=== PATIENT | female | born 1935 | race Caucasian/White ===

== ENCOUNTER 2018-11-21 13:39 | Emergency (ER) | payer MEDICARE, BC ==
--- NOTE | 2018-11-21 14:18 | ED Physician Documentation ---
PD HPI HEAD INJURY - Stated complaint Stated Complaint: HEAD INJ - Chief complaint Chief Complaint: Trauma Hd/Nk - History obtained from History obtained from: Patient - History of Present Illness Mechanism of head injury: Fell (Run into by dog and fell backward hitting occiput on asphalt. +LOC. Happened 2 hours ago. + H/A.) Review of Systems Constitutional: reports: Reviewed and negative Nose: reports: Reviewed and negative Throat: reports: Reviewed and negative Cardiac: reports: Reviewed and negative PD PAST MEDICAL HISTORY - Past Medical History Respiratory: Asthma - Past Surgical History General: Appendectomy - Present Medications Home Medications: Ambulatory Orders Medication Instructions Recorded Confirmed Albuterol Sulfate [Ventolin Hfa] 2 puffs IH Q4HR PRN #1 [id number] 04/11/16 Azithromycin [Zithromax] 250 mg PO DAILY #6 tablet 04/11/16 Meloxicam [Mobic] 7.5 mg PO DAILY 04/11/16 04/11/16 Mometasone Furoate [Asmanex Hfa] 2 puffs PO BID 04/11/16 04/11/16 - Allergies Allergies/Adverse Reactions: Allergies Allergy/AdvReac Type Severity Reaction Status Date / Time iodine Allergy Rash Verified 11/21/18 13:48 Sulfa (Sulfonamide Allergy Rash Verified 11/21/18 13:48 Antibiotics) - Social History Does the pt smoke?: No Smoking Status: Never smoker Does the pt drink ETOH?: No Does the pt have substance abuse?: No - Family History Family history: reports: Non contributory PD ED PE NORMAL - Vitals Vital signs reviewed: Yes - General General: Alert and oriented X 3, No acute distress - HEENT HEENT: PERRL, EOMI, Other (Occiput with swollen area with overlying abrasion.) - Neck Neck: Supple, no meningeal sign, No bony TTP - Neuro Neuro: Alert and oriented X 3, mold bunch trimmer 2-12 intact Eye Opening: Spontaneous Motor: Obeys Commands Verbal: Oriented GCS Score: 15 - Psych Psych: Normal mood, Normal affect Results - Vitals Vitals: Vital Signs - 24 hr 11/21/18 13:49 Temperature 36.6 C Heart Rate 98 Respiratory 16 Rate Blood Pressure 169/92 H O2 Saturation 96 Oxygen O2 Source Room air - Rads (name of study) [facility] and [facility] Radiology: EMP read contemporaneously (NAD) Departure - Departure Disposition: 01 Home, Self Care Clinical Impression: Low back pain Qualifiers: Chronicity: acute Back pain laterality: midline Sciatica presence: without sciatica Qualified Code(s): M54.5 - Low back pain Concussion Qualifiers: Encounter type: initial encounter Loss of consciousness presence/duration: with LOC of 30 min or less Qualified Code(s): S06.0X1A - Concussion with loss of consciousness of 30 minutes or less, initial encounter Injury of head and neck Qualifiers: Encounter type: initial encounter Qualified Code(s): S09.90XA - Unspecified injury of head, initial encounter; S19.9XXA - Unspecified injury of neck, initial encounter Condition: Good Record reviewed to determine appropriate education?: Yes Instructions: ED Head Injury Closed Comments: Your CT scans are negative for serious injury. You do not have to be checked on frequently or stay up tonight. Tylenol as needed for pain. Follow-up with your doctor for persistent symptoms. Your blood pressure was elevated today on check into the emergency department. This does not mean that you have hypertension, it is a common phenomenon to come to the emergency department and have elevated blood pressure. I recommend that you see your primary care physician within the week to have it rechecked when you are feeling better.
[2018-11-21] MEDS ORDERED: TETANUS/DIPHTHERIA/PERTUSSIS 0.5 ML SYRINGE IM ONE (14:23)
[2018-11-21] MEDS ORDERED: ACETAMINOPHEN 500 MG TABLET PO STA (14:29)
--- NOTE | 2018-11-21 15:16 | CT Report ---
Reason: neck inj Procedure Date: 11/21/2018 Accession Number: [id number] / [id number] Procedure: CT - CERVICAL SPINE WO CPT Code: FULL RESULT: EXAM: CT HEAD. CT SCAN OF THE CERVICAL SPINE. EXAM DATE: 11/21/2018 02:56 PM. CLINICAL HISTORY: Head inj with LOC. COMPARISON: CERVICAL SPINE W/O 11/21/2018 2:54 PM. TECHNIQUE: Noncontrast axial sections through the head and cervical spine. Reformats: Sagittal and coronal of the head, coronal and sagittal of the cervical spine. In accordance with CT protocol optimization, one or more of the following dose reduction techniques were utilized for this exam: automated exposure control, adjustment of mA and/or KV based on patient size, or use of iterative reconstructive technique. FINDINGS CT HEAD: Parenchyma: No intraparenchymal hemorrhage. No evidence of mass, midline shift, or CT findings of infarction. Lopez-white differentiation is distinct. Mild patchy white matter hypodensity in the periventricular white matter and centrum semiovale suggesting chronic microvascular ischemic change. Extraaxial Spaces: Normal for age. No subdural or epidural collections identified. Ventricles: Normal in size and position accounting for mild generalized cerebral and cerebellar volume loss. Sinuses and orbits: Globes and orbits are unremarkable. Small mucous retention cyst or polyp left maxillary sinus. Sinuses, mastoids otherwise clear. Bones: No evidence of fracture or calvarial defect. Other: None. FINDINGS CT CERVICAL SPINE: Alignment: Normal. No scoliosis or spondylolisthesis. Bones: No fracture or bone lesion. Interspace Levels/Facets: Moderate-severe multilevel disk degeneration most pronounced at C3-C4 through C6-C7. There is mild-moderate multilevel facet degeneration most pronounced at the mid to lower cervical levels. Spinal Canal: Normal. Musculature: Normal. No fatty atrophy. Other: The paravertebral and prevertebral soft tissues are unremarkable. The lung apices are clear. IMPRESSION: Head CT: 1. No definite acute intracranial abnormality. 2. Chronic atrophic and probable microvascular ischemic changes as noted above. Cervical Spine CT: 1. No definite acute fracture or malalignment. 2. Multilevel cervical degeneration. RADIA
--- NOTE | 2018-11-21 15:16 | CT Report ---
Reason: head inj with LOC Procedure Date: 11/21/2018 Accession Number: [id number] / [id number] Procedure: CT - HEAD WO CPT Code: FULL RESULT: EXAM: CT HEAD. CT SCAN OF THE CERVICAL SPINE. EXAM DATE: 11/21/2018 02:56 PM. CLINICAL HISTORY: Head inj with LOC. COMPARISON: CERVICAL SPINE W/O 11/21/2018 2:54 PM. TECHNIQUE: Noncontrast axial sections through the head and cervical spine. Reformats: Sagittal and coronal of the head, coronal and sagittal of the cervical spine. In accordance with CT protocol optimization, one or more of the following dose reduction techniques were utilized for this exam: automated exposure control, adjustment of mA and/or KV based on patient size, or use of iterative reconstructive technique. FINDINGS CT HEAD: Parenchyma: No intraparenchymal hemorrhage. No evidence of mass, midline shift, or CT findings of infarction. Lopez-white differentiation is distinct. Mild patchy white matter hypodensity in the periventricular white matter and centrum semiovale suggesting chronic microvascular ischemic change. Extraaxial Spaces: Normal for age. No subdural or epidural collections identified. Ventricles: Normal in size and position accounting for mild generalized cerebral and cerebellar volume loss. Sinuses and orbits: Globes and orbits are unremarkable. Small mucous retention cyst or polyp left maxillary sinus. Sinuses, mastoids otherwise clear. Bones: No evidence of fracture or calvarial defect. Other: None. FINDINGS CT CERVICAL SPINE: Alignment: Normal. No scoliosis or spondylolisthesis. Bones: No fracture or bone lesion. Interspace Levels/Facets: Moderate-severe multilevel disk degeneration most pronounced at C3-C4 through C6-C7. There is mild-moderate multilevel facet degeneration most pronounced at the mid to lower cervical levels. Spinal Canal: Normal. Musculature: Normal. No fatty atrophy. Other: The paravertebral and prevertebral soft tissues are unremarkable. The lung apices are clear. IMPRESSION: Head CT: 1. No definite acute intracranial abnormality. 2. Chronic atrophic and probable microvascular ischemic changes as noted above. Cervical Spine CT: 1. No definite acute fracture or malalignment. 2. Multilevel cervical degeneration. RADIA
[2018-11-21 16:56] VITALS: BP 134/78
== END 2018-11-21 15:00 | disposition home or self-care (01) ==
LOC: ED 13:39
DX: S06.0X1A Concussion with loss of consciousness of 30 minutes or less, initial encounter (principal); W54.1XXA Struck by dog, initial encounter; M54.5 Low back pain; R03.0 Elevated blood-pressure reading, without diagnosis of hypertension; Z23 Encounter for immunization
CPT/HCPCS: 70450; 72125; 90471; 90715; 99283; A9270

== ENCOUNTER 2018-12-08 08:00 | Outpatient (CLI) | payer MEDICARE, BC | END 2018-12-08 23:59 | disposition home or self-care (01) | LOC: LAB.R 08:00 | PROVIDERS: ATTEND Registered Nurse | DX: Z51.89 Encounter for other specified aftercare (principal) | CPT/HCPCS: 87070; 87205 ==